=== PATIENT | male | born 1950 | race Hispanic/Latino ===

== ENCOUNTER 2021-01-12 15:17 | Observation (INO) | payer MEDICARE ==
[~2021-01-12] VITALS: Ht 180.3 cm; Wt 84.5 kg
[~2021-01-12 15:17] MED LIST: CEFAZOLIN SOD 1 GM VIAL ONE; DEXAMETHASONE SOD PHOS INJ 4 MG/ML VIAL ONE; ETOMIDATE 2 MG/ML 10 ML INJ IV ONE; FENTANYL CITRATE/PF 100MCG/2 ML INJ ONE; LIDOCAINE HCL 2% JELLY 5 ML TUBE ONE; LIDOCAINE HCL 2% LOCAL INJ 5 ML SDV VIAL INJ ONE; ONDANSETRON HCL INJ 2MG/ML 2ML 2 MG/ML VIAL ONE; POVIDONE IODINE 0.05% 0.05 % ML PO ONE; PROPOFOL IV EMULSION 10 MG/ML 20 ML VIAL ONE; ROCURONIUM BROMIDE 10 MG/ML 5ML VIAL IV ONE; SEVOFLURANE INHAL SOLN 250 ML PEN BTL ONE
[2021-01-12] MEDS ORDERED: ONDANSETRON HCL INJ 2MG/ML 2ML 2 MG/ML VIAL IV STA (15:40)
[2021-01-12] MEDS ORDERED: MORPHINE SULFATE INJ 4 MG/ML INJ 1ML IV NR (15:40)
[2021-01-12] MEDS ORDERED: PANTOPRAZOLE 40 MG 10ML VIAL IV STA (15:40)
[2021-01-12] MEDS ORDERED: SODIUM CHLORIDE 0.9% 1000ML 1,000 ML IV STA (15:40)
[2021-01-12] MEDS ORDERED: ONDANSETRON HCL INJ 2MG/ML 2ML 2 MG/ML VIAL ONE (15:51)
[2021-01-12] MEDS ORDERED: MORPHINE SULFATE INJ 4 MG/ML INJ 1ML ONE (15:51)
[2021-01-12] MEDS ORDERED: PANTOPRAZOLE 40 MG 10ML VIAL ONE (15:52)
[2021-01-12] MEDS ORDERED: SODIUM CHLORIDE 0.9% 1000ML 1,000 ML ONE (15:52)
[2021-01-12 15:57] LABS: BASOPHILS % 0.2 % (0.0-1.0); EOSINOPHILS % 0.1 % (0.0-6.0); HEMATOCRIT 43.9 % (38.2-49.6); HEMOGLOBIN 15.7 g/dL (14.0-18.0); LYMPHOCYTES % 6.1 % (18.0-39.1); MEAN CORPUSCULAR HEMOGLOBIN 29.9 pg (28-32); MEAN CORPUSCULAR HGB CONC 35.8 g/dL (31-35); MEAN CORPUSCULAR VOLUME 83.6 fL (81-99); MONOCYTES # (AUTO) 1.2 (0.2-0.8); MONOCYTES % 6.9 % (4.4-11.3); NEUTROPHILS # (AUTO) 14.7 (2.1-6.9); NEUTROPHILS % 86.1 % (38.7-80.0); PLATELET COUNT 303 x10e3/uL (140-360); RED BLOOD COUNT 5.25 x10e6/uL (4.3-5.7); RED CELL DISTRIBUTION WIDTH 13.7 % (11.7-14.4)
[2021-01-12 16:03] LABS: CLARITY,URINE CLOUDY (CLEAR); COLOR,URINE YELLOW (YELLOW)
[2021-01-12 16:04] LABS: KETONES,URINE NEGATIVE (NEGATIVE); LEUKOCYTE ESTERASE ,URINE NEGATIVE (NEGATIVE); NITRITE,URINE NEGATIVE (NEGATIVE); PROTEIN,URINE DIPSTICK NEGATIVE (NEGATIVE); URINE UROBILINOGEN 0.2 mg/dL (0.2 - 1)
[2021-01-12 16:14] LABS: RBC,URINE 0-5 /HPF (0-5); WBC,URINE (MAN) 0-5 /HPF (0-5)
[2021-01-12 16:15] LABS: INR 0.95; PROTHROMBIN TIME 13.3 seconds (11.9-14.5)
[2021-01-12 16:16] LABS: AMORPHOUS SEDIMENT,URINE MANY (FEW); PARTIAL THROMBOPLASTIN TIME 27.2 seconds (23.8-35.5)
[2021-01-12 16:23] LABS: ALANINE AMINOTRANSFERASE 25 IU/L (0-55); ALBUMIN 4.1 g/dL (3.5-5.0); ALBUMIN/GLOBULIN RATIO 1.2 (0.8-2.0); ALKALINE PHOSPHATASE 89 IU/L (40-150); AMYLASE 45 U/L (25-125); ANION GAP 14.7 mmol/L (8-16); BLOOD UREA NITROGEN 9 mg/dL (7-26); BUN/CREATININE RATIO 9 (6-25); CARBON DIOXIDE 25 mmol/L (22-29); CHLORIDE 104 mmol/L (98-107); CREATINE KINASE 65 IU/L (30-200); CREATININE, SERUM 0.95 mg/dL (0.72-1.25); EST GLOMERULAR FILTRATION RATE > 60 ML/MIN (60-); GLUCOSE 149 mg/dL (74-118); LIPASE 37 U/L (8-78); MAGNESIUM 1.8 MG/DL (1.3-2.1); POTASSIUM 3.7 mmol/L (3.5-5.1); SODIUM 140 mmol/L (136-145)
[2021-01-12] MEDS ORDERED: SODIUM CHLORIDE 0.9% 50ML 50 ML ONE (16:41)
[2021-01-12] MEDS ORDERED: IOPAMIDOL 370 MG/ML 200 ML INFUS..BTL INJ ONE (16:42)
[2021-01-12] MEDS ORDERED: PIPERACILLIN/TAZOBAC 3.375 GM in SODIUM CHLORIDE 0.9% 50ML 50 ML IV STA (17:01)
[2021-01-12] MEDS ORDERED: ONDANSETRON HCL INJ 2MG/ML 2ML 2 MG/ML VIAL IV PRN (18:00)
[2021-01-12] MEDS ORDERED: MORPHINE SULFATE INJ 4 MG/ML INJ 1ML IV PRN (18:00)
[2021-01-12 18:50] VITALS: BP 121/62
[2021-01-12 19:30] VITALS: BP 121/62
[2021-01-12 20:00] VITALS: BP 121/62
[2021-01-12] MEDS: SODIUM CHLORIDE 0.9% 1000ML 1,000 ML IV SCH (20:26)
[2021-01-12 20:48] LABS: BAND NEUTROPHILS % (MANUAL) 1 %; LYMPHOCYTES % (MANUAL) 12 % (19-48); MONOCYTES % (MANUAL) 4 % (3.4-9.0); NEUTROPHILS % (MANUAL) 83 % (40-74)
[2021-01-12 20:49] LABS: PLATELET ESTIMATE ADEQUATE; PLATELET MORPHOLOGY COMMENT NORMAL; RBC MORPHOLOGY COMMENT NORMAL
[2021-01-12] MEDS ORDERED: ACETAMINOPHEN 1000 MG/100 ML 100 ML IV ONE (21:02)
[2021-01-12] MEDS ORDERED: SUGAMMADEX SODIUM 200 MG/2 ML VIAL IV ONE (21:03)
[2021-01-12] MEDS ORDERED: BUPIVACAINE 0.25% 30ML SDV ONE (21:31)
[2021-01-12] MEDS ORDERED: BUPIVACAINE 0.5%/EPI 30 ML SDV INJ ONE (21:32)
[2021-01-12] MEDS: PIPERACILLIN/TAZOBAC 3.375 GM in SODIUM CHLORIDE 0.9% 50ML 50 ML IV SCH (22:00)
[2021-01-12] MEDS ORDERED: MEPERIDINE HCL INJ 25 MG/ML VIAL ONE (22:30)
[2021-01-12 22:45] VITALS: BP 113/60
[2021-01-12 23:00] VITALS: BP 111/60
[2021-01-12 23:15] VITALS: BP 105/56
[2021-01-12] MEDS ORDERED: OMEPRAZOLE40 MG PO (23:57)
[2021-01-12] MEDS ORDERED: AMLODIPINE BESYL5 MG PO (23:57)
[2021-01-12] MEDS ORDERED: FLOMAX0.4 MG PO (23:57)
[2021-01-12] MEDS ORDERED: LIPITOR10 MG PO (23:57)
[2021-01-12] MEDS ORDERED: GABAPENTIN300 MG PO (23:57)
[2021-01-12] MEDS ORDERED: ASPIRIN CHEW81 MG PO (23:57)
[2021-01-12] MEDS ORDERED: VASOTEC10 M1 PO (23:57)
[2021-01-12] MEDS ORDERED: METOPROLOL SUCC50 MG PO (23:57)
[2021-01-13] VITALS: BP 108/64
[2021-01-13] MEDS: SODIUM CHLORIDE 0.9% 1000ML 1,000 ML IV SCH ×3 (02:00→09:26)
[2021-01-13 04:00] VITALS: BP 101/61
[2021-01-13 04:46] LABS: BASOPHILS % 0.1 % (0.0-1.0); HEMATOCRIT 40.2 % (38.2-49.6); HEMOGLOBIN 14.1 g/dL (14.0-18.0); LYMPHOCYTES # (AUTO) 0.7 (1.0-3.2); MEAN CORPUSCULAR HEMOGLOBIN 29.8 pg (28-32); MEAN CORPUSCULAR HGB CONC 35.1 g/dL (31-35); MONOCYTES # (AUTO) 0.2 (0.2-0.8); MONOCYTES % 1.3 % (4.4-11.3); NEUTROPHILS # (AUTO) 12.4 (2.1-6.9); NEUTROPHILS % 93.1 % (38.7-80.0); PLATELET COUNT 264 x10e3/uL (140-360); RED BLOOD COUNT 4.73 x10e6/uL (4.3-5.7)
[2021-01-13 05:09] LABS: ALANINE AMINOTRANSFERASE 19 IU/L (0-55); ALBUMIN 3.4 g/dL (3.5-5.0); ALBUMIN/GLOBULIN RATIO 1.2 (0.8-2.0); ALKALINE PHOSPHATASE 76 IU/L (40-150); BLOOD UREA NITROGEN 8 mg/dL (7-26); BUN/CREATININE RATIO 10 (6-25); CALCIUM 8.1 mg/dL (8.4-10.2); CARBON DIOXIDE 21 mmol/L (22-29); CHLORIDE 107 mmol/L (98-107); CREATININE, SERUM 0.81 mg/dL (0.72-1.25); EST GLOMERULAR FILTRATION RATE > 60 ML/MIN (60-); GLUCOSE 177 mg/dL (74-118); SODIUM 137 mmol/L (136-145)
[2021-01-13] MEDS: PIPERACILLIN/TAZOBAC 3.375 GM in SODIUM CHLORIDE 0.9% 50ML 50 ML IV SCH ×2 (05:57→14:00)
[2021-01-13 08:11] VITALS: BP 104/56
[2021-01-13 09:00] VITALS: BP 104/56
[2021-01-13] MEDS ORDERED: KETOROLAC TROMETHAMINE 30 MG/ML VIAL IV PRN (09:30)
[2021-01-13] MEDS ORDERED: GABAPENTIN 300 MG CAP PO PRN (09:30)
[2021-01-13] MEDS ORDERED: PANTOPRAZOLE SOD 40 MG TABEC PO SCH (10:00)
[2021-01-13] MEDS ORDERED: ASPIRIN 81 MG CHEW TAB PO SCH (10:00)
[2021-01-13 11:35] VITALS: BP 104/62
[2021-01-13] MEDS ORDERED: ENALAPRIL MALEATE 10 MG TAB PO SCH (17:00)
[2021-01-13] MEDS ORDERED: TAMSULOSIN HCL 0.4 MG CAP PO SCH (17:00)
[2021-01-13] MEDS ORDERED: ATORVASTATIN 10 MG TAB PO SCH (21:00)
[2021-01-14] MEDS ORDERED: AMLODIPINE BESYLATE 5 MG TAB PO SCH (09:00)
[2021-01-14] MEDS ORDERED: METOPROLOL SUCCINATE 50 MG TAB XL PO SCH (09:00)
[2021-01-14] MEDS ORDERED: TAMSULOSIN HCL 0.4 MG CAP PO SCH (09:00)
== END 2021-01-13 14:05 | disposition home or self-care (01) ==
LOC: ER 15:27 → INTOOBSV 17:51 → ERHOLD 17:51 → MED/SURG 19:45
PROVIDERS: ADMIT Internal Medicine; ATTEND Internal Medicine
DX: K35.80 Unspecified acute appendicitis (principal); Z20.822 Contact with and (suspected) exposure to COVID-19; I10 Essential (primary) hypertension; N40.0 Benign prostatic hyperplasia without lower urinary tract symptoms
CPT/HCPCS: 36415 ×2; 44970; 71045; 74177; 80053 ×2; 81001; 82150; 82550; 82553; 83605; 83690; 83735; 84484; 85025 ×2; 85610; 85730; 87040; 87086; 88304; 93005; 99284; C9113; G0378 ×2; J0131; J0690; J1100; J1885; J2001 ×2; J2175; J2270 ×2; J2405 ×2; J2543 ×2; J2704; J3010; J7030 ×2; Q9967; S0164; U0002

== ENCOUNTER 2022-07-02 15:30 | Observation (INO) | payer MEDICARE ==
[~2022-07-02] VITALS: Ht 180.3 cm; Wt 86.4 kg
[~2022-07-02 15:30] MED LIST changes: +AMLODIPINE BESYL5 MG PO; +ASPIRIN CHEW81 MG PO; -CEFAZOLIN SOD 1 GM VIAL ONE; -DEXAMETHASONE SOD PHOS INJ 4 MG/ML VIAL ONE; -ETOMIDATE 2 MG/ML 10 ML INJ IV ONE; -FENTANYL CITRATE/PF 100MCG/2 ML INJ ONE; +FLOMAX0.4 MG PO; +GABAPENTIN300 MG PO; -LIDOCAINE HCL 2% JELLY 5 ML TUBE ONE; -LIDOCAINE HCL 2% LOCAL INJ 5 ML SDV VIAL INJ ONE; +LIPITOR10 MG PO; +METOPROLOL SUCC50 MG PO; +OMEPRAZOLE40 MG PO; -ONDANSETRON HCL INJ 2MG/ML 2ML 2 MG/ML VIAL ONE; -POVIDONE IODINE 0.05% 0.05 % ML PO ONE; -PROPOFOL IV EMULSION 10 MG/ML 20 ML VIAL ONE; -ROCURONIUM BROMIDE 10 MG/ML 5ML VIAL IV ONE; -SEVOFLURANE INHAL SOLN 250 ML PEN BTL ONE; +VASOTEC10 M1 PO
[2022-07-02] MEDS ORDERED: METOCLOPRAMIDE HCL 10 MG/2ML VIAL IV ONE (16:15)
[2022-07-02] MEDS ORDERED: DIPHENHYDRAMINE HCL INJ 50 MG/ML VIAL IV ONE (16:15)
[2022-07-02 16:23] LABS: BASOPHILS % 0.1 % (0.0-1.0); EOSINOPHILS # (AUTO) 0.1 (0.0-0.4); EOSINOPHILS % 1.5 % (0.0-6.0); HEMATOCRIT 46.6 % (38.2-49.6); LYMPHOCYTES # (AUTO) 2.1 (1.0-3.2); LYMPHOCYTES % 22.7 % (18.0-39.1); MEAN CORPUSCULAR HEMOGLOBIN 29.8 pg (28-32); MEAN CORPUSCULAR HGB CONC 34.3 g/dL (31-35); MEAN CORPUSCULAR VOLUME 86.8 fL (81-99); MONOCYTES # (AUTO) 0.8 (0.2-0.8); NEUTROPHILS # (AUTO) 6.3 (2.1-6.9); NEUTROPHILS % 67.3 % (38.7-80.0); PLATELET COUNT 312 x10e3/uL (140-360); RED BLOOD COUNT 5.37 x10e6/uL (4.3-5.7); RED CELL DISTRIBUTION WIDTH 13.5 % (11.7-14.4)
[2022-07-02 16:42] LABS: ALBUMIN 3.9 g/dL (3.5-5.0); ALBUMIN/GLOBULIN RATIO 1.2 (0.8-2.0); ANION GAP 12.7 mmol/L (8-16); CALCIUM 8.4 mg/dL (8.4-10.2); CREATININE, SERUM 0.97 mg/dL (0.72-1.25); POTASSIUM 3.7 mmol/L (3.5-5.1)
[2022-07-02 16:48] LABS: CREATINE KINASE MB 2.4 ng/mL (0-5.0)
[2022-07-02] MEDS: SODIUM CHLORIDE 0.9% 1000ML 1,000 ML IV SCH (17:46)
[2022-07-02] MEDS: CHLORPROMAZINE HCL 25 MG TAB PO SCH ×2 (18:10→23:16)
[2022-07-02] MEDS ORDERED: CETIRIZINE HCL10 M1 PO (18:32)
[2022-07-02] MEDS ORDERED: LEXAPRO20 MG PO (18:32)
[2022-07-02] MEDS ORDERED: MELOXICAM7.5 MG PO (18:33)
[2022-07-02 20:00] VITALS: BP 128/73
[2022-07-02 20:26] VITALS: BP 128/73
[2022-07-02 20:40] VITALS: BP 126/73
[2022-07-02] MEDS ORDERED: CHLORPROMAZINE HCL 25 MG TAB PO PRN (23:30)
[2022-07-03] VITALS (7 sets, daily range): BP systolic 98–123; BP diastolic 64–78
[2022-07-03 02:46] LABS: CREATINE KINASE MB 2.2 ng/mL (0-5.0)
[2022-07-03] MEDS: CEPACOL SORE THROAT LOZENGES PO PRN ×3 (03:56→21:39)
[2022-07-03] MEDS: SODIUM CHLORIDE 0.9% 1000ML 1,000 ML IV SCH ×3 (03:56→21:38)
[2022-07-03] MEDS ORDERED: IOPAMIDOL 370 MG/ML 100 ML INFUS..BTL INJ ONE (05:33)
[2022-07-03] MEDS ORDERED: PANTOPRAZOLE SOD 40 MG TABEC PO SCH (07:30)
[2022-07-03 08:06] LABS: BASOPHILS % 0.2 % (0.0-1.0); EOSINOPHILS # (AUTO) 0.1 (0.0-0.4); EOSINOPHILS % 1.2 % (0.0-6.0); HEMATOCRIT 43.7 % (38.2-49.6); HEMOGLOBIN 14.9 g/dL (14.0-18.0); LYMPHOCYTES # (AUTO) 1.4 (1.0-3.2); MEAN CORPUSCULAR HEMOGLOBIN 29.7 pg (28-32); MEAN CORPUSCULAR HGB CONC 34.1 g/dL (31-35); MEAN CORPUSCULAR VOLUME 87.1 fL (81-99); MONOCYTES # (AUTO) 0.7 (0.2-0.8); MONOCYTES % 7.7 % (4.4-11.3); NEUTROPHILS # (AUTO) 6.4 (2.1-6.9); NEUTROPHILS % 74.5 % (38.7-80.0); PLATELET COUNT 277 x10e3/uL (140-360); RED BLOOD COUNT 5.02 x10e6/uL (4.3-5.7); RED CELL DISTRIBUTION WIDTH 13.6 % (11.7-14.4)
[2022-07-03 08:32] LABS: ALBUMIN 3.4 g/dL (3.5-5.0); ALBUMIN/GLOBULIN RATIO 1.2 (0.8-2.0); ANION GAP 12.7 mmol/L (8-16); CALCIUM 7.9 mg/dL (8.4-10.2); CREATININE, SERUM 0.8 mg/dL (0.72-1.25); POTASSIUM 3.7 mmol/L (3.5-5.1)
[2022-07-03] MEDS ORDERED: NON-FORMULARY MEDICATION (Cetirizine Hcl 10 MG) PO SCH (09:00)
[2022-07-03] MEDS ORDERED: AMLODIPINE BESYLATE 5 MG TAB PO SCH (09:00)
[2022-07-03] MEDS: METOPROLOL SUCCINATE 50 MG TAB XL PO SCH (09:00)
[2022-07-03] MEDS: ASPIRIN 81 MG CHEW TAB PO SCH (09:27)
[2022-07-03] MEDS: LORATADINE 10 MG TAB PO SCH (09:27)
[2022-07-03] MEDS: TAMSULOSIN HCL 0.4 MG CAP PO SCH (09:27)
[2022-07-03] MEDS: ENALAPRIL MALEATE 10 MG TAB PO SCH ×2 (09:28→16:56)
[2022-07-03] MEDS ORDERED: CHLORPROMAZINE HCL INJ 25 MG/ML AMP IM ONE (10:00)
[2022-07-03 14:15] LABS: CREATINE KINASE MB 2.3 ng/mL (0-5.0)
[2022-07-03] MEDS: CHLORPROMAZINE HCL 25 MG TAB PO PRN ×2 (16:57→23:19)
[2022-07-03] MEDS ORDERED: ATORVASTATIN 40 MG TAB PO SCH (21:00)
[2022-07-03] MEDS ORDERED: ESCITALOPRAM OXALATE 10 MG TAB PO SCH ×2 (21:00)
[2022-07-04 00:55] VITALS: BP 103/68
[2022-07-04] MEDS: METOCLOPRAMIDE HCL 10 MG/2ML VIAL IV SCH ×2 (01:25→06:11)
[2022-07-04 05:19] VITALS: BP 102/72
[2022-07-04] MEDS: SODIUM CHLORIDE 0.9% 1000ML 1,000 ML IV SCH (07:41)
[2022-07-04 08:20] VITALS: BP 100/69
[2022-07-04 08:41] VITALS: BP 100/69
[2022-07-04] MEDS: ASPIRIN 81 MG CHEW TAB PO SCH (09:56)
[2022-07-04] MEDS: TAMSULOSIN HCL 0.4 MG CAP PO SCH (09:56)
[2022-07-04] MEDS: LORATADINE 10 MG TAB PO SCH (09:56)
[2022-07-04] MEDS: METOPROLOL SUCCINATE 50 MG TAB XL PO SCH (09:57)
[2022-07-04] MEDS: ENALAPRIL MALEATE 10 MG TAB PO SCH (09:58)
[2022-07-04] MEDS ORDERED: METOCLOPRAMIDE HCL 10 MG TAB PO SCH (11:30)
[2022-07-04] MEDS ORDERED: AMLODIPINE BESYLATE 5 MG TAB PO SCH (21:00)
== END 2022-07-04 10:58 | disposition home or self-care (01) ==
LOC: ER 15:35 → ERHOLD 17:14 → MED/SURG3 19:49
PROVIDERS: ADMIT Internal Medicine; ATTEND Internal Medicine
DX: R06.6 Hiccough (principal); I10 Essential (primary) hypertension; F32.A Depression, unspecified; E78.5 Hyperlipidemia, unspecified; K57.30 Diverticulosis of large intestine without perforation or abscess without bleeding; K44.9 Diaphragmatic hernia without obstruction or gangrene; Z20.822 Contact with and (suspected) exposure to COVID-19
CPT/HCPCS: 36415; 71045 ×2; 71260; 74177; 80053 ×2; 82550 ×2; 82553 ×2; 84484 ×2; 85025 ×2; 93005; 94799 ×2; 99284; C9113 ×3; G0378 ×3; J1200; J2765 ×2; J3230; J7030 ×3; Q0161 ×2; Q9967; U0002